=== PATIENT | male | born 1985 | race Caucasian/White ===

== ENCOUNTER 2021-07-18 13:39 | Emergency (ER) | payer SELFPAY ==
[2021-07-18 13:40] VITALS: BP 136/83; PULSE 99; RESP 17; TEMP 36.8; O2SAT 99; BMI 24.3
--- NOTE | 2021-07-18 13:54 | PC.NURSE ---
pt sitting in lobby due to all rooms full, i checked on the wound, bleeding is controlled. pt was advised it will be awhile .
--- NOTE | 2021-07-18 15:34 | ED_ITS ---
ED Disposition Clinical Impression: Laceration of left hand Qualifiers: Encounter type: initial encounter Foreign body presence: without foreign body Qualified Code(s): S61.412A - Laceration without foreign body of left hand, initial encounter Disposition: Home, Self-Care Condition on Discharge: Good Instructions: DI for Laceration Repair Additional Instructions: sutures out in 10 days with PCP Prescriptions: Sulfamethoxazole/Trimethoprim [Bactrim DS tablet] 1 each PO BID #20 tab Prescription Printed Referrals: Provider,Referral, MD [Primary Care Provider] - - Critical Care Critical Care Time: No Attestation: On 07/18/21, the high probability of a clinically significant, sudden or life threatening deterioration of the following system(s) required my full and direct attention, intervention and personal management. The time I documented below is in addition to time spent performing reported procedures but includes the following listed in this critical care notation. Medical Decision Making - Medical Records Medical records reviewed: Yes: I reviewed the patient's medical records. - Trung Inquiry Pt receiving controlled substance: No Vital Signs: 07/18/21 13:40 Temperature 98.3 F Temperature Source Oral Pulse Rate [Left Radial] 99 H Respiratory Rate 17 Blood Pressure [Right Arm] 136/83 Blood Pressure Mean [Right Arm] 100 02 Sat by Pulse Oximetry 99 Medical Decision Narrative: left hand lac, 4cm, lido 1% plain, irrigated well, 4-0 nylon running stich, [email or web address] Wound/Laceration HPI - General Chief Complaint: Wound/Laceration Stated Complaint: finger cut Time Seen by Provider: 07/18/21 15:35 Mode of Arrival: Ambulatory Limitations: No Limitations Description of Symptoms (Recalled from ER Triage Doc. by RN): pt to ed c/o left hand laceration. pt was working and cut his left hand with a utility knife. the lacration starts under the left thumb to the middle of the palm. 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 ROS Obtained: Yes All systems reviewed & no additional complaints Physical Exam - General General appearance: alert, in no apparent distress - Head Head exam: atraumatic - Respiratory Respiratory exam: Absent: respiratory distress, wheezes, stridor - Cardiovascular Cardiovascular exam: Present: regular rate, normal rhythm. Absent: bradycardia - Neurological Exam Neurological exam: Present: alert, oriented X3, CN II-XII intact - Skin Skin exam: Present: other (left palm lac 4cm into subq gaping, n/v intact, no tendon deficit)
[2021-07-18 15:49] VITALS: BP 124/88; PULSE 87; RESP 17; TEMP 36.8; O2SAT 98
== END 2021-07-18 15:50 | disposition home or self-care (01) ==
PROVIDERS: Emergency Provider Emergency Medicine
DX: S61.412A Laceration without foreign body of left hand, initial encounter (principal); Z79.899 Other long term (current) drug therapy; Z88.0 Allergy status to penicillin; Z88.8 Allergy status to other drugs, medicaments and biological substances; W26.0XXA Contact with knife, initial encounter
CPT/HCPCS: 12002; 99282